=== PATIENT | male | born 1980 | race Caucasian/White ===

== ENCOUNTER 2018-08-02 21:26 | Emergency (ER) | payer BC ==
[2018-08-02 21:33] VITALS: BP 132/86; TEMP 98
[2018-08-02] MEDS ORDERED: MOBIC 7.5MG7.5 MG PO (21:56)
[2018-08-02] MEDS ORDERED: PRIL40 PO (21:57)
[2018-08-02 22:19] VITALS: PULSE 80
[2018-08-02] MEDS ORDERED: FLEXERIL 1010 MG/TAB PO (22:19)
== END 2018-08-02 22:21 | disposition home or self-care (01) ==
LOC: COL.ER 21:26
DX: M25.561 Pain in right knee (principal); K21.9 Gastro-esophageal reflux disease without esophagitis; I10 Essential (primary) hypertension; F17.220 Nicotine dependence, chewing tobacco, uncomplicated

== ENCOUNTER 2018-10-23 20:38 | Emergency (ER) | payer BC ==
[~2018-10-23] VITALS: Ht 162.6 cm; Wt 77.3 kg
[~2018-10-23 20:38] MED LIST: FLEXERIL 1010 MG/TAB PO; MOBIC 7.5MG7.5 MG PO; PRIL40 PO
[2018-10-23 20:44] VITALS: BP 148/89; TEMP 98
[2018-10-23] MEDS ORDERED: NORCO 325 MG-51 TAB PO (22:52)
[2018-10-23 23:41] VITALS: PULSE 80
== END 2018-10-23 23:42 | disposition home or self-care (01) ==
LOC: COL.ER 20:38
DX: G89.29 Other chronic pain (principal); M25.561 Pain in right knee; I10 Essential (primary) hypertension; F17.220 Nicotine dependence, chewing tobacco, uncomplicated